=== PATIENT | female | born 1965 | race Caucasian/White ===

== ENCOUNTER 2017-06-09 00:40 | Emergency (ER) | payer SELFPAY ==
[2017-06-09 00:48] VITALS: BP 126/69; PULSE 99; RESP 18; TEMP 98.4; O2SAT 100
--- NOTE | 2017-06-09 01:14 | PD ---
Data Data Last Documented VS Vital Signs Date Time Temp Pulse Resp B/P (MAP) Pulse Ox O2 Delivery O2 Flow Rate FiO2 06/09/17 00:48 98.4 99 18 126/69 (88) 100 MDM Supervised Visit with FABI: No Narrative Course Patient eloped prior to my examination. Disposition: 07 AGAINST MEDICAL ADVICE Timmy Curran MD Jun 09, 2017 01:14
--- NOTE | 2017-06-09 13:18 | EKG ---
Date Performed: 06/09/2017 Time Performed: 00:48:26 PTAGE: 52 years EKG: Sinus rhythm LOW QRS VOLTAGE IN PRECORDIAL LEADS BORDERLINE ECG NO PREVIOUS TRACING DOCTOR: Carlitos Rocha Interpretating Date/Time 06/09/2017 13:18:12
== END 2017-06-09 01:12 | disposition left against medical advice (07) ==
LOC: NEPE 00:40
DX: Z53.21 Procedure and treatment not carried out due to patient leaving prior to being seen by health care provider (principal)
CPT/HCPCS: 93005; 99281